=== PATIENT | male | born 1970 | race Caucasian/White ===

== ENCOUNTER → 2021-10-10 13:53 | Outpatient (BNVA) | payer MEDICARE, OTHER, SELFPAY | PROVIDERS: PCP Internal Medicine; Visit Provider Nurse Practitioner Family | DX: M25.571 Pain in right ankle and joints of right foot (principal); M25.572 Pain in left ankle and joints of left foot; G89.29 Other chronic pain; M25.372 Other instability, left ankle; B07.0 Plantar wart; L85.9 Epidermal thickening, unspecified; Z87.81 Personal history of (healed) traumatic fracture; Z87.898 Personal history of other specified conditions | CPT/HCPCS: 99202 ==